=== PATIENT | male | born 1980 | race Caucasian/White ===

== ENCOUNTER 2021-10-07 12:48 | Emergency (ER) | payer OTHER ==
[~2021-10-07] VITALS: Ht 167.6 cm; Wt 95.5 kg
[2021-10-07 12:56] VITALS: TEMP 97.7
[2021-10-07] MEDS ORDERED: XARELTO STARTER20 MG PO (13:40)
[2021-10-07 13:42] VITALS: BP 131/76; PULSE 78
== END 2021-10-07 13:46 | disposition home or self-care (01) ==
LOC: COL.ER 12:48
DX: I82.411 Acute embolism and thrombosis of right femoral vein (principal); Z79.01 Long term (current) use of anticoagulants

== ENCOUNTER → 2021-10-07 | Outpatient (CLI) | payer OTHER ==
[~2021-10-07] MED LIST: XARELTO STARTER20 MG PO
== END ==
LOC: COL.VAS 11:20
DX: S82.61XD Displaced fracture of lateral malleolus of right fibula, subsequent encounter for closed fracture with routine healing (principal); I82.401 Acute embolism and thrombosis of unspecified deep veins of right lower extremity